=== PATIENT | female | born 1970 | race Caucasian/White ===

== ENCOUNTER 2016-10-28 09:35 | Emergency (ER) | payer OTHER ==
[~2016-10-28] VITALS: Ht 170.2 cm; Wt 86.4 kg
[2016-10-28] MEDS ORDERED: Ammonia Aromatic Inhalant Ampule INHALATION ONE (09:42)
[2016-10-28 09:46] VITALS: BP 158/86; PULSE 102; RESP 12; O2SAT 100
--- NOTE | 2016-10-28 09:48 | ED.REPORT ---
HPI-General Illness Date of Service Oct 28, 2016 ED Provider: Gabriela Wright MD The patient is a 46 year old female who presents to the ED due to dizziness onset yesterday. Associated symptoms include vomiting, shaking, and chills. The patient states she feels like she's in a coma and is, "fading quickly." Yesterday, the patient consumed someone else's Adderall, she has never taken this medication previously. She does not open her eyes when responding to questions and speaks in a soft, barely audible, tone. She describes she can hear people talking but her, "brain isn't' connected to her body." She denies SOB, abdominal pain, head pain, and extremity pain. Nursing Notes Stated Complaint: POSSIBLE SEPSIS Chief Complaint: General Complaint Nursing Notes Reviewed: Yes Allergies: Coded Allergies: thiopental (Verified Allergy, Unknown, 10/28/16) Scheduled Fluoxetine (Fluoxetine) 20 Mg Tablet 60 MG PO DAILY Levothyroxine (Levothyroxine) 50 Mcg Tablet 50 MCG PO DAILY Scheduled PRN Clonazepam (Clonazepam) 1 Mg Tablet 1 MG PO BID PRN PRN For Anxiety or Agitation Zolpidem (Zolpidem) 10 Mg Tablet 10 MG PO HS PRN PRN For Insomnia General Time Seen by MD: 09:47 Chief Complaint Dizziness Hx Obtained From: Patient Arrived By: Walk-in Sudden in Onset?: Yes Onset Occurred: 1 - 4 hours ago Symptom Duration: Since onset Severity: Current: No pain currently Recent Healthcare: No recent doctor visit, No recent hospitalization Similar Sx Previous: No Past Medical History Past Medical History treated twice for sepsis Past Surgical History denies Social History Other Social History: Good social support, Local resident Ambulatory Status Independent Review of Systems Full Review of Systems Constitutional: Reports: Chills Respiratory: Denies: Shortness of breath Cardiovascular: Denies: Chest pain GI: Reports: Vomiting, Denies: Abdominal pain Musculoskeletal: Denies: Back pain, Extremity pain, Joint pain, Neck pain Neurologic: Reports: Confusion, Dizziness, Shaking, Weakness Complete sys rev & neg: except as marked. Physical Exam Vital Signs Vital Signs Date Time Temp Pulse Resp B/P Pulse Ox O2 Delivery O2 Flow Rate FiO2 10/28/16 12:16 87 20 126/105 98 Room Air 10/28/16 10:19 98 13 143/41 100 Room Air 10/28/16 09:46 36.5 102 12 158/86 100 Room Air Initial VS: Reviewed, Vital signs abnormal General/Constitutional: Awake, Cooperative Patient wilfully closes eyes says in soft voice she is "fading" Answers questions appropriately Head / Eyes: Atraumatic, Normocephalic, PERRL, EOMI Heart Rate / Rhythm: Positive: Tachycardia Abdomen: Atraumatic, Non-tender Upper Extremities Upper Extremity / MS: Atraumatic, Inspection NL, No deformity Lower Extremity / Pelvis / MS: Atraumatic, Inspection NL, No deformity able to move all extremities but has poor effort Skin: Atraumatic, No rash, Warm, Dry Neurologic: Oriented X3, Speech NL, No motor deficits Interpretation & Diagnostics Lab Results Interpretation Result Diagram: 10/28/16 1018 10/28/16 1018 Test 10/28/16 10:18 10/28/16 11:52 White Blood Count 7.7th/mm3 (3.8-10.1) Red Blood Count 4.29mil/mm3 (3.90-5.20) Hemoglobin 13.3g/dL (12.0-15.6) Hematocrit 41.0% (35.0-46.0) Mean Corpuscular Volume 95.6fL (81-100) Mean Corpuscular Hemoglobin 31.0pg (27.0-35.0) Mean Corpuscular Hemoglobin Concent 32.4% (32.0-37.0) Red Cell Distribution Width 12.9% (12.3-15.4) Platelet Count 235bil/L (150-400) Neutrophils (%) (Auto) 70.8% (40-74) Lymphocytes (%) (Auto) 22.0% (14-46) Monocytes (%) (Auto) 6.5% (4-12) Eosinophils (%) (Auto) 0.5% (0-5) Basophils (%) (Auto) 0.1% (0-3) Erythrocyte Sedimentation Rate 16mm/hr (0-32) Sodium Level 137mEq/L (134-144) Potassium Level 4.1mEq/L (3.5-5.2) Chloride Level 101mEq/L (97-108) Carbon Dioxide Level 21mmol/L (18-29) Blood Urea Nitrogen 13mg/dL (6-24) Creatinine 0.64mg/dL (0.57-1.00) Estimat Glomerular Filtration Rate 142mL/min (>59) Glucose Level 117mg/dL (60-99) Calcium Level 9.3mg/dL (8.5-10.1) Magnesium Level 1.9mg/dL (1.6-2.6) Total Bilirubin 0.2mg/dL (0.0-1.2) Aspartate Amino Transf (AST/SGOT) 31U/L (0-50) Alanine Aminotransferase (ALT/SGPT) 34U/L (0-32) Alkaline Phosphatase 103U/L (25-150) C-Reactive Protein 0.3mg/dL (0.0-0.5) Total Protein 7.3g/dL (6.4-8.4) Albumin 3.9g/dL (3.4-5.0) Hold Shannon Top Tube Received (Received) Urine Color Straw (YELLOW) Urine Appearance Hazy (CLEAR,HAZY) Urine pH 6.5 (5.0-8.0) Urine Specific [place] 1.005 (1.003-1.035) Urine Protein Negativemg/dL (NEG,TRACE) Urine Glucose (UA) Negativemg/dL (NEGATIVE) Urine Ketones Negativemg/dL (NEGATIVE) Urine Occult Blood Small (NEGATIVE) Urine Nitrite Negative (NEGATIVE) Urine Bilirubin Negative (NEGATIVE) Urine Urobilinogen Normalmg/dL (NORMAL) Urine Leukocyte Esterase Negative (NEGATIVE) Urine RBC 0-2/hpf (0-2) Urine WBC 0-5/hpf (0-5) Urine Epithelial Cells Occasional/hpf (NONE-MOD) Urine Crystals None seen (NONE SEEN) Urine Bacteria Few/hpf (NONE-FEW) Urine Hyaline Casts None/lpf (NONE) Urine Granular Casts None seen (NONE SEEN) Urine Waxy Casts None seen (NONE SEEN) Urine Red Blood Cell Casts None seen (NONE SEEN) Urine White Blood Cell Casts None seen (NONE SEEN) Urine Mucus None seen (None Seen) Urine Trichomonas None seen (NONE SEEN) Urine Yeast None (NONE SEEN) Urinalysis Comment None Urine Culture Reflexed Not indicated Re-Eval/Medical Decision Med Decision/Clinical Course This patient was concern for possible sepsis. She took someone else's Adderall. She said she felt very jittery inside and like she was fading. She had normal vital signs, no sign of infection or inflammation. She was observed here and said she was starting to feel better with improvement in her vital signs. Her tachycardia and hypertension were likely related to the Adderall. Time of Eval: 11:08 Re-Evaluation/Progress Note: Pt recheckd. There are no signs of infection in blood or inflammatory changes. Symptoms are most likely due to Adderrall. Informed pt of diagnosis and plan for treatment. Pt understands and agrees with plan. F/U and RTER warnings given. All questions addressed. Counseled Regarding: Diagnosis, Lab results, Need for follow-up, When/why to return to ED Discharge & Departure Primary Impression: Adverse reaction to [id number] medication Encounter type: initial encounter Qualified Code: T50.905A - Adverse effect of unspecified drugs, medicaments and biological substances, initial encounter Disposition: Home Discharge Condition All VS Reviewed: Yes Condition: Stable Additional Instructions: Thank you for entrusting us with your care today. All of your laboratory results are normal. I believe your symptoms are due to taking Adderall, amphetamines can lead to psychotic symptoms. Do not take this medication again. Follow up with your primary care physician. Return to the Emergency Department if you experience any new or worsening symptoms. Referrals: [facility] [place] Attestation Portion of this note were transcribed by Sariah Kat. I, Dr. Wright , personally performed the history, physical exam, and medical decision-making: I reviewed and confirmed the accuracy for the information in the transcribed note. Signed by: constantino Pereira, 10/28/16 1200 copies to: [facility] Gabriela Wright MD Oct 28, 2016 09:48 Sariah Kat Oct 28, 2016 09:56
[2016-10-28] MEDS ORDERED: 0.9% Sodium Chloride 1,000 ML IV ONE (09:55)
[2016-10-28] MEDS ORDERED: ZOLP10TA5 PO (10:14)
[2016-10-28] MEDS ORDERED: KLO1T PO (10:14)
[2016-10-28] MEDS ORDERED: LEVO50TA6 PO (10:14)
[2016-10-28] MEDS ORDERED: FLUO20TA28 PO (10:14)
[2016-10-28 10:19] VITALS: BP 143/41; PULSE 98; RESP 13; O2SAT 100
[2016-10-28 10:25] LABS: BASOPHILS % (AUTO) 0.1 % (0-3); EOSINOPHILS % (AUTO) 0.5 % (0-5); MONOCYTES % (AUTO) 6.5 % (4-12); Mean Corpuscular Volume 95.6 fL (81-100); NEUTROPHILS % (AUTO) 70.8 % (40-74); Platelet Count 235 bil/L (150-400)
[2016-10-28 10:36] LABS: Magnesium 1.9 mg/dL (1.6-2.6)
[2016-10-28 10:58] LABS: ERYTHROCYTE SEDIMENTATION RATE 16 mm/hr (0-32)
[2016-10-28 12:16] VITALS: BP 126/105; PULSE 87; RESP 20; O2SAT 98
[2016-10-28 12:37] LABS: APPEARANCE,URINE HAZY (CLEAR,HAZY); COLOR,URINE STRAW (YELLOW); OCCULT BLOOD,URINE SMALL (NEGATIVE); PH,URINE 6.5 (5.0-8.0); UROBILINOGEN,URINE NORMAL (NORMAL)
== END 2016-10-28 12:17 | disposition home or self-care (01) ==
LOC: SED 09:35
DX: T43.621A Poisoning by amphetamines, accidental (unintentional), initial encounter (principal); X58.XXXA Exposure to other specified factors, initial encounter; Y93.89 Activity, other specified; Y92.9 Unspecified place or not applicable; Y99.8 Other external cause status; Z88.8 Allergy status to other drugs, medicaments and biological substances
CPT/HCPCS: 36415; 80053; 81000; 83735; 85025; 85651; 86140; 96360; 99284; J7030